=== PATIENT | male | born 1955 | race Caucasian/White ===

== ENCOUNTER 2017-03-13 07:40 | Inpatient (IN) | payer MEDICARE, MEDICAID ==
[2017-03-10 10:25] VITALS: BP 131/105
[2017-03-10 11:24] LABS: BLOOD UREA NITROGEN 12 mg/dL (7-18)
[2017-03-10 11:28] LABS: ASPARTATE AMINO TRANSFERASE 19 U/L (15-37)
[~2017-03-13] VITALS: Ht 182.9 cm; Wt 70.4 kg
[~2017-03-13 07:40] MED LIST: AMIT25TA PO; BUPIVACAINE/PF-EPI 0.5% 1:200K ONE; CLON-365 PO; CLON1TAB PO; DICL25TA PO; DOXY100C15 PO; FENT1PAT77 TP; GABA300C10 PO; GABA800T2 PO; HYDR8TAB27 PO; METH500T97 PO; METH750T87 PO; MORP15TA3 PO; NEOSPORIN OINT, 15GM ONE; OXYC-229 PO; OXYC10TA6 PO; OXYC20TA42 PO; TRAM50TA2 PO; TRAZ100T15 PO
[2017-03-13] MEDS ORDERED: LACTATED RINGERS 1,000 ML IV SCH (08:19)
[2017-03-13] MEDS ORDERED: LIDOCAINE 1%, 2ML ONE (08:28)
[2017-03-13] MEDS ORDERED: FENTANYL PF 250 MCG/5ML ONE (08:38)
[2017-03-13] MEDS ORDERED: MIDAZOLAM 1 MG/ML, 2ML ONE (08:38)
[2017-03-13] MEDS ORDERED: ONDANSETRON 2MG/ML, 2ML IV PRN (10:30)
[2017-03-13] MEDS ORDERED: DIPHENHYDRAMINE 25 MG CAPSULE PO PRN (10:30)
[2017-03-13] MEDS ORDERED: ALUMINUM/MAG/SIMETHICONE 30 ML UDC PO PRN (10:30)
[2017-03-13] MEDS ORDERED: SENNA/DOCUSATE TABLET PO PRN (10:30)
[2017-03-13] MEDS ORDERED: MAGNESIUM HYDROXIDE 8%, 30ML UDC PO PRN (10:30)
[2017-03-13] MEDS ORDERED: PROMETHAZINE 25 MG/ML, 1ML IM PRN (10:30)
[2017-03-13] MEDS ORDERED: HYDROmorphone 1 MG/ML, 1ML IV PRN (10:30)
[2017-03-13] MEDS ORDERED: BISACODYL 10 MG SUPP PR PRN (10:30)
[2017-03-13] MEDS ORDERED: PROMETHAZINE 25 MG/ML, 1ML IV PRN (11:00)
[2017-03-13] MEDS ORDERED: OXYcodone 5 MG/5 ML ORAL.SOL UDC PO PRN (11:00)
[2017-03-13] MEDS ORDERED: ONDANSETRON 2MG/ML, 2ML IVPush PRN (11:00)
[2017-03-13] MEDS ORDERED: MEPERIDINE/PF 25MG/0.5ML IVPush PRN (11:00)
[2017-03-13] MEDS ORDERED: ACETAMINOPHEN 325 MG TABLET PO PRN (11:00)
[2017-03-13] MEDS ORDERED: LABETALOL 5MG/ML, 20ML IV PRN (11:00)
[2017-03-13] MEDS ORDERED: HYDROmorphone 2 MG/ML, 1ML ONE ×2 (11:25→11:46)
[2017-03-13] MEDS ORDERED: ACETAMINOPHEN 325 MG TABLET ONE (11:46)
[2017-03-13] MEDS ORDERED: ACETAMINOPHEN 650 MG/20.3 ML UDC ONE (11:46)
[2017-03-13] MEDS ORDERED: OXYcodone 5 MG/5 ML ORAL.SOL UDC ONE (11:46)
[2017-03-13] MEDS ORDERED: FENTANYL PF 100 MCG/2ML ONE (11:46)
[2017-03-13] MEDS: HYDROmorphone 1 MG/ML, 1ML IV PRN ×4 (11:53→12:25)
[2017-03-13] MEDS: FENTANYL PF 100 MCG/2ML IV PRN ×2 (12:04→12:13)
[2017-03-13 13:00] VITALS: BP 136/90
[2017-03-13] MEDS ORDERED: CEFAZOLIN 1,000 MG ONE (15:33)
[2017-03-13] MEDS ORDERED: ONDANSETRON 2MG/ML, 2ML ONE (15:33)
[2017-03-13] MEDS ORDERED: ROCURONIUM 10 MG/ML ONE (15:33)
[2017-03-13] MEDS ORDERED: PROPOFOL 10 MG/ML, 20ML ONE (15:33)
[2017-03-13] MEDS ORDERED: DEXAMETHASONE 4 MG/ML, 1ML ONE (15:33)
[2017-03-13] MEDS ORDERED: SUCCINYLCHOLINE 20 MG/ML, 10ML ONE (15:33)
[2017-03-13] MEDS: HYDROmorphone 4MG TABLET PO SCH ×3 (15:50→21:33)
[2017-03-13] MEDS: D5%-0.45% NACL 1,000 ML IV SCH ×2 (15:50→20:11)
[2017-03-13] MEDS: AMITRIPTYLINE 25 MG TABLET PO SCH ×2 (15:50→21:33)
[2017-03-13] MEDS: GABAPENTIN 400 MG CAPSULE PO SCH ×2 (15:50→21:33)
[2017-03-13 17:00] VITALS: BP 141/74
[2017-03-13] MEDS: CEFAZOLIN PMX 1GM/50ML 50 ML IVPB SCH (17:39)
[2017-03-13 19:21] VITALS: BP 136/76
[2017-03-13] MEDS ORDERED: TRAZODONE 100MG TABLET PO SCH (21:00)
[2017-03-14 00:20] VITALS: BP 119/76
[2017-03-14] MEDS: CEFAZOLIN PMX 1GM/50ML 50 ML IVPB SCH ×2 (02:32→10:13)
[2017-03-14 03:56] VITALS: BP 108/72
[2017-03-14] MEDS: HYDROmorphone 4MG TABLET PO SCH ×3 (05:34→13:02)
[2017-03-14] MEDS: GABAPENTIN 400 MG CAPSULE PO SCH (08:50)
[2017-03-14] MEDS: AMITRIPTYLINE 25 MG TABLET PO SCH (08:50)
[2017-03-14 09:00] VITALS: BP 92/60
[2017-03-14] MEDS ORDERED: METHOCARBAMOL 500 MG TABLET PO SCH (09:00)
[2017-03-14] MEDS ORDERED: HYDROmorphone 2MG TABLET ONE (13:00)
[2017-03-14 13:02] VITALS: BP 127/72
== END 2017-03-14 13:10 | disposition home or self-care (01) | DRG 460 ==
LOC: ORIP 07:40 → 4NOR 13:02
PROVIDERS: ADMIT Orthopaedic Surgery Orthopaedic Surgery of the Spine; ATTEND Orthopaedic Surgery Orthopaedic Surgery of the Spine
PROC: 0SG80ZZ (ICD-10-PCS; principal; 2017-03-13 10:00)
DX: M13.88 Other specified arthritis, other site (principal); G89.29 Other chronic pain; M54.9 Dorsalgia, unspecified
CPT/HCPCS: 36415; 71020; 72202; 76000; 80053; 81003; 85025; 93005; J0690; J1100; J1170; J2250; J2405; J2704; J3010; C1762; C1776; J0330; J7120

== ENCOUNTER → 2017-04-11 | Outpatient (CLI) | payer MEDICARE, MEDICAID ==
[~2017-04-11] MED LIST changes: -BUPIVACAINE/PF-EPI 0.5% 1:200K ONE; -NEOSPORIN OINT, 15GM ONE
== END | disposition home or self-care (01) ==
LOC: STAR 10:09
PROVIDERS: ATTEND Orthopaedic Surgery Orthopaedic Surgery of the Spine
DX: Z01.818 Encounter for other preprocedural examination (principal); M46.1 Sacroiliitis, not elsewhere classified
CPT/HCPCS: 93005

== ENCOUNTER 2017-04-17 05:52 | Inpatient (IN) | payer MEDICARE, MEDICAID ==
[2017-04-11 10:57] VITALS: BP 153/96
[~2017-04-17] VITALS: Ht 180.3 cm; Wt 81.6 kg
[2017-04-17] MEDS ORDERED: LACTATED RINGERS 1,000 ML IV SCH (06:28)
[2017-04-17] MEDS ORDERED: LIDOCAINE 1%, 2ML SQ PRN (06:30)
[2017-04-17] MEDS ORDERED: BACITRACIN OINT 500U/GM, 15 GM ONE (06:54)
[2017-04-17] MEDS ORDERED: BUPIVACAINE/PF-EPI 0.5% 1:200K ONE (06:55)
[2017-04-17] MEDS ORDERED: MIDAZOLAM 1 MG/ML, 2ML ONE ×2 (07:08)
[2017-04-17] MEDS ORDERED: FENTANYL PF 250 MCG/5ML ONE ×2 (07:08)
[2017-04-17] MEDS ORDERED: PROMETHAZINE 25 MG/ML, 1ML IV PRN (08:00)
[2017-04-17] MEDS ORDERED: hydrALAzine 20 MG/ML, 1ML IV PRN (08:00)
[2017-04-17] MEDS ORDERED: SENNA/DOCUSATE TABLET PO PRN (08:00)
[2017-04-17] MEDS ORDERED: LABETALOL 5MG/ML, 20ML IV PRN (08:00)
[2017-04-17] MEDS ORDERED: PROMETHAZINE 25 MG/ML, 1ML IM PRN (08:00)
[2017-04-17] MEDS ORDERED: DIPHENHYDRAMINE 25 MG CAPSULE PO PRN (08:00)
[2017-04-17] MEDS ORDERED: ALUMINUM/MAG/SIMETHICONE 30 ML UDC PO PRN (08:00)
[2017-04-17] MEDS ORDERED: HYDROmorphone 1 MG/ML, 1ML IV PRN (08:00)
[2017-04-17] MEDS ORDERED: BISACODYL 10 MG SUPP PR PRN (08:00)
[2017-04-17] MEDS ORDERED: MAGNESIUM HYDROXIDE 8%, 30ML UDC PO PRN (08:00)
[2017-04-17] MEDS ORDERED: MIDAZOLAM 1 MG/ML, 2ML IV PRN (08:00)
[2017-04-17] MEDS ORDERED: OXYcodone 5 MG/5 ML ORAL.SOL UDC PO PRN (08:00)
[2017-04-17] MEDS ORDERED: ONDANSETRON 2MG/ML, 2ML IVPush PRN ×2 (08:00)
[2017-04-17] MEDS ORDERED: FENTANYL PF 100 MCG/2ML IV PRN (08:00)
[2017-04-17] MEDS ORDERED: MEPERIDINE/PF 25MG/0.5ML IVPush PRN (08:00)
[2017-04-17] MEDS ORDERED: ACETAMINOPHEN 325 MG TABLET PO PRN (08:00)
[2017-04-17] MEDS ORDERED: OXYcodone 5 MG/5 ML ORAL.SOL UDC ONE (09:08)
[2017-04-17] MEDS ORDERED: HYDROmorphone 1 MG/ML, 1ML ONE (09:08)
[2017-04-17] MEDS ORDERED: ACETAMINOPHEN 650 MG/20.3 ML UDC ONE (09:08)
[2017-04-17] MEDS ORDERED: HYDROmorphone 4MG TABLET PO PRN (10:00)
[2017-04-17 11:50] VITALS: BP 161/95
[2017-04-17] MEDS: HYDROmorphone 1 MG/ML, 1ML IVPush PRN ×5 (12:07→23:05)
[2017-04-17] MEDS: METHOCARBAMOL 500 MG TABLET PO SCH (12:10)
[2017-04-17] MEDS: D5%-0.45% NACL 1,000 ML IV SCH ×2 (12:10→23:06)
[2017-04-17] MEDS: GABAPENTIN 400 MG CAPSULE PO SCH ×3 (12:11→23:04)
[2017-04-17] MEDS: DOCUSATE 100 MG CAPSULE PO SCH ×2 (12:11→20:45)
[2017-04-17] MEDS: AMITRIPTYLINE 25 MG TABLET PO SCH ×3 (12:11→20:45)
[2017-04-17 13:38] VITALS: BP 128/80
[2017-04-17] MEDS: HYDROmorphone 2MG TABLET PO PRN ×3 (13:47→23:46)
[2017-04-17] MEDS ORDERED: LORazepam 2 MG/ML, 1ML IVPush ONE (15:30)
[2017-04-17] MEDS ORDERED: METOCLOPRAMIDE 5 MG/ML, 2ML ONE (16:03)
[2017-04-17] MEDS ORDERED: CEFAZOLIN 1,000 MG ONE (16:03)
[2017-04-17] MEDS ORDERED: PROPOFOL 10 MG/ML, 20ML ONE (16:03)
[2017-04-17] MEDS ORDERED: KETOROLAC 30 MG/1 ML ONE (16:03)
[2017-04-17] MEDS ORDERED: ROCURONIUM 10 MG/ML ONE (16:03)
[2017-04-17] MEDS ORDERED: PHENYLEPHRINE 10 MG/ML ONE (16:03)
[2017-04-17] MEDS ORDERED: DEXAMETHASONE 4 MG/ML, 1ML ONE (16:03)
[2017-04-17] MEDS ORDERED: ONDANSETRON 2MG/ML, 2ML ONE (16:03)
[2017-04-17] MEDS: CEFAZOLIN PMX 1GM/50ML 50 ML IVPB SCH ×2 (16:07→23:12)
[2017-04-17 19:08] VITALS: BP 107/79
[2017-04-17] MEDS ORDERED: TRAZODONE 100MG TABLET PO SCH (21:00)
[2017-04-17 23:27] VITALS: BP 117/80
[2017-04-18] MEDS: HYDROmorphone 1 MG/ML, 1ML IVPush PRN ×4 (01:03→08:37)
[2017-04-18 03:50] VITALS: BP 110/69
[2017-04-18] MEDS: HYDROmorphone 2MG TABLET PO PRN ×2 (03:58→11:55)
[2017-04-18 07:08] VITALS: BP 107/85
[2017-04-18] MEDS: D5%-0.45% NACL 1,000 ML IV SCH (08:00)
[2017-04-18] MEDS: METHOCARBAMOL 500 MG TABLET PO SCH (09:00)
[2017-04-18] MEDS: DOCUSATE 100 MG CAPSULE PO SCH (09:00)
[2017-04-18] MEDS: AMITRIPTYLINE 25 MG TABLET PO SCH (09:00)
[2017-04-18] MEDS: GABAPENTIN 400 MG CAPSULE PO SCH (09:00)
== END 2017-04-18 13:55 | disposition home or self-care (01) | DRG 460 ==
LOC: ORIP 05:52 → 4NOR 10:40 → DCLOUNGE 04-18 13:32
PROVIDERS: ADMIT Orthopaedic Surgery Orthopaedic Surgery of the Spine; ATTEND Orthopaedic Surgery Orthopaedic Surgery of the Spine
PROC: 0SG70ZZ (ICD-10-PCS; principal; 2017-04-17 07:30)
DX: M46.1 Sacroiliitis, not elsewhere classified (principal)
CPT/HCPCS: 72202; 76001; J0690; J1100; J1170; J1885; J2250; J2405; J2704; J3010; C1762; C1776; J2060; J2370; J2765; J7120

== ENCOUNTER 2017-06-05 05:21 | Observation (INO) | payer MEDICARE, MEDICAID ==
[~2017-06-05] VITALS: Ht 180.3 cm; Wt 72.0 kg
[~2017-06-05 05:21] MED LIST changes: -OXYC-229 PO; +OXYC-307 PO; +PROP80TA PO; +TIZA4CAP PO
[2017-06-05] MEDS ORDERED: LACTATED RINGERS 1,000 ML IV SCH (06:08)
[2017-06-05 06:21] VITALS: BP 134/85
[2017-06-05] MEDS ORDERED: BUPIVACAINE/PF 0.5% ONE (06:52)
[2017-06-05] MEDS ORDERED: EPINEPHRINE 1 MG/ML, 1ML ONE (06:53)
[2017-06-05] MEDS ORDERED: BACITRACIN OINT 500U/GM, 15 GM ONE (06:53)
[2017-06-05] MEDS ORDERED: THROMBIN 5,000 UNIT VIAL TP ONE (06:53)
[2017-06-05] MEDS ORDERED: MIDAZOLAM 1 MG/ML, 2ML ONE (07:14)
[2017-06-05] MEDS ORDERED: FENTANYL PF 100 MCG/2ML ONE ×3 (07:14→09:32)
[2017-06-05] MEDS ORDERED: PROPOFOL 10 MG/ML, 20ML ONE (07:46)
[2017-06-05] MEDS ORDERED: DEXAMETHASONE 4 MG/ML, 1ML ONE (07:46)
[2017-06-05] MEDS ORDERED: PHENYLEPHRINE 10 MG/ML ONE (07:46)
[2017-06-05] MEDS ORDERED: ONDANSETRON 2MG/ML, 2ML ONE (07:46)
[2017-06-05] MEDS ORDERED: ROCURONIUM 10 MG/ML ONE (07:46)
[2017-06-05] MEDS ORDERED: CEFAZOLIN 1,000 MG ONE (07:46)
[2017-06-05] MEDS ORDERED: EPHEDRINE 50 MG/ML, 1ML ONE (07:46)
[2017-06-05] MEDS ORDERED: OXYcodone 5 MG/5 ML ORAL.SOL UDC PO PRN (08:30)
[2017-06-05] MEDS ORDERED: hydrALAzine 20 MG/ML, 1ML IV PRN (08:30)
[2017-06-05] MEDS ORDERED: ONDANSETRON 2MG/ML, 2ML IVPush PRN ×2 (08:30)
[2017-06-05] MEDS ORDERED: MEPERIDINE/PF 25MG/0.5ML IVPush PRN (08:30)
[2017-06-05] MEDS ORDERED: ACETAMINOPHEN 325 MG TABLET PO PRN (08:30)
[2017-06-05] MEDS ORDERED: LABETALOL 5MG/ML, 20ML IV PRN (08:30)
[2017-06-05] MEDS ORDERED: SENNA/DOCUSATE TABLET PO PRN (08:30)
[2017-06-05] MEDS ORDERED: HYDROmorphone 2MG TABLET PO PRN (08:30)
[2017-06-05] MEDS ORDERED: PROMETHAZINE 25 MG/ML, 1ML IV PRN (08:30)
[2017-06-05] MEDS ORDERED: BISACODYL 10 MG SUPP PR PRN (08:30)
[2017-06-05] MEDS ORDERED: MAGNESIUM HYDROXIDE 8%, 30ML UDC PO PRN (08:30)
[2017-06-05] MEDS ORDERED: OXYcodone/APAP 5/325MG TABLET PO PRN (08:30)
[2017-06-05] MEDS ORDERED: MIDAZOLAM 1 MG/ML, 2ML IV PRN (08:30)
[2017-06-05] MEDS ORDERED: PHARMACY MAY ADJ FOR RENAL FX MC PRN (08:30)
[2017-06-05] MEDS ORDERED: PROMETHAZINE 25 MG/ML, 1ML IM PRN (08:30)
[2017-06-05] MEDS ORDERED: DIPHENHYDRAMINE 50 MG/ML, 1ML IVPush PRN (08:30)
[2017-06-05] MEDS ORDERED: D5%-0.9% NACL+KCL 20MEQ 1,000 ML IV SCH (08:30)
[2017-06-05] MEDS ORDERED: METHOCARBAMOL 750 MG TABLET PO PRN (08:30)
[2017-06-05] MEDS ORDERED: KETAMINE 10 MG/ML, 20ML ONE (08:41)
[2017-06-05] MEDS ORDERED: GABAPENTIN 400 MG CAPSULE PO SCH (09:00)
[2017-06-05] MEDS ORDERED: AMITRIPTYLINE 25 MG TABLET PO SCH (09:00)
[2017-06-05] MEDS ORDERED: TIZANIDINE 4MG TABLET PO SCH (09:00)
[2017-06-05] MEDS ORDERED: ACETAMINOPHEN 650 MG/20.3 ML UDC ONE (09:32)
[2017-06-05] MEDS ORDERED: OXYcodone 5 MG/5 ML ORAL.SOL UDC ONE (09:32)
[2017-06-05] MEDS ORDERED: HYDROmorphone 2 MG/ML, 1ML ONE (09:33)
[2017-06-05] MEDS: FENTANYL PF 100 MCG/2ML IV PRN ×2 (09:35→09:42)
[2017-06-05] MEDS ORDERED: KETOROLAC 30 MG/1 ML ONE (09:43)
[2017-06-05] MEDS: HYDROmorphone 1 MG/ML, 1ML IV PRN ×4 (09:52→10:20)
[2017-06-05] MEDS ORDERED: METHOCARBAMOL 750 MG TABLET ONE (09:54)
[2017-06-05] MEDS ORDERED: HYDROmorphone 4MG TABLET PO SCH (10:00)
[2017-06-05] MEDS ORDERED: KETOROLAC 30 MG/1 ML IVPush ONE (10:00)
[2017-06-05] MEDS ORDERED: PROPRANOLOl 80 MG CAP.SA.24H PO SCH (21:00)
[2017-06-05] MEDS ORDERED: TRAZODONE 100MG TABLET PO SCH (21:00)
== END 2017-06-05 13:25 | disposition home or self-care (01) ==
LOC: OUT 05:21 → ORIP 08:05
PROVIDERS: ADMIT Orthopaedic Surgery Orthopaedic Surgery of the Spine; ATTEND Orthopaedic Surgery Orthopaedic Surgery of the Spine
DX: M48.07 Spinal stenosis, lumbosacral region (principal); M48.06 Spinal stenosis, lumbar region; G89.4 Chronic pain syndrome
CPT/HCPCS: 63056; 72100; C1769; G0378; J0171; J0690; J1100; J1170; J1885; J2250; J2370; J2405; J2704; J3010; J3490; J7120

== ENCOUNTER 2018-03-16 13:37 | Emergency (ER) | payer MEDICARE, MEDICAID ==
[~2018-03-16] VITALS: Ht 182.9 cm; Wt 82.0 kg
[~2018-03-16 13:37] MED LIST changes: +CEPH-368 PO; +DIAZ5TAB4 PO; +HYDR4TAB PO; +METH4TAB2 PO
[2018-03-16] MEDS ORDERED: HYDROcodone/APAP 5/325 TABLET ONE (14:02)
[2018-03-16] MEDS ORDERED: HYDROcodone/APAP 5/325 TABLET PO ONE (14:30)
[2018-03-16] MEDS ORDERED: CYCLOBENZAPRINE 10 MG TABLET PO ONE (16:00)
[2018-03-16 16:06] VITALS: BP 106/78
== END 2018-03-16 16:10 | disposition home or self-care (01) ==
LOC: ED 15:30
DX: S39.012A Strain of muscle, fascia and tendon of lower back, initial encounter (principal); S29.012A Strain of muscle and tendon of back wall of thorax, initial encounter; M51.35 Other intervertebral disc degeneration, thoracolumbar region; W22.03XA Walked into furniture, initial encounter; Y93.89 Activity, other specified; Y92.89 Other specified places as the place of occurrence of the external cause; Y99.8 Other external cause status
CPT/HCPCS: 72072; 72110; 99284

== ENCOUNTER → 2020-03-29 | Outpatient (CLI) | payer MEDICARE, MEDICAID ==
[~2020-03-29] MED LIST changes: +AMIT10TA PO; +ATOR-2 PO; +CARI350T PO; -CLON-365 PO; +CLON0.5T PO; +CLON1TAB11 PO; +DILT120C80 PO; +GABA-827 PO; -GABA800T2 PO; +GABA800T5 PO; +METO50TA82 PO; +MORP-29 PO; -MORP15TA3 PO; +TRAZ-175 PO; -TRAZ100T15 PO
[2020-03-29 10:19] LABS: ALBUMIN 3.5 g/dL (3.4-5.0); ANION GAP 3 mmol/L (5-15); CALCIUM 8.4 mg/dL (8.5-10.1); CHLORIDE 109 mmol/L (98-107); INTERNATIONAL NORMALIZED RATIO 0.93 (0.93-1.1); PROTHROMBIN TIME 9.9 Seconds (9.6-11.5)
[2020-03-29 10:23] LABS: ALANINE AMINOTRANSFERASE 22 U/L (12-78); ALKALINE PHOSPHATASE 281 U/L (45-117); BILIRUBIN,TOTAL 0.4 mg/dL (0.2-1.0); CREATININE 1.18 mg/dL (0.7-1.3); TOTAL PROTEIN 7.8 g/dL (6.4-8.2)
[2020-03-29 10:39] LABS: BASOPHILS # (AUTO) 0.02 x10^3/uL (0-0.1); BASOPHILS % (AUTO) 0 % (0-1); EOSINOPHILS # (AUTO) 0.11 x10^3/uL (0-0.4); EOSINOPHILS % (AUTO) 2 % (1-7); LYMPHOCYTES # (AUTO) 1.64 x10^3/uL (1-3.4); LYMPHOCYTES % (AUTO) 26 % (22-44); MD NO; MEAN CORPUSCULAR HEMOGLOBIN 30.2 pg (27.5-34.5); MEAN CORPUSCULAR VOLUME 91.3 fL (81-97); MEAN PLATELET VOLUME 7.9 fL (7.4-10.4); MONOCYTES # (AUTO) 0.52 x10^3/uL (0.2-0.8); MONOCYTES % (AUTO) 8 % (2-9); NEUTROPHILS # (AUTO) 3.96 x10^3/uL (1.8-6.8); NEUTROPHILS % (AUTO) 63 % (42-75); PLATELET COUNT 302 x10^3/uL (130-400); RED BLOOD COUNT 4.43 x10^6/uL (4.38-5.82); RED CELL DISTRIBUTION WIDTH 15.1 % (9.4-14.8)
[2020-03-29 11:22] LABS: HCT (SEDRATE) 40.4 % (39.2-51.8)
== END | disposition home or self-care (01) ==
LOC: STAR 08:56
PROVIDERS: ATTEND Orthopaedic Surgery Orthopaedic Surgery of the Spine
DX: Z01.818 Encounter for other preprocedural examination (principal); T85.898A Other specified complication of other internal prosthetic devices, implants and grafts, initial encounter; M40.209 Unspecified kyphosis, site unspecified; I45.10 Unspecified right bundle-branch block
CPT/HCPCS: 36415; 80053; 83036; 85025; 85610; 85651; 85730; 93005

== ENCOUNTER → 2020-05-22 | Outpatient (CLI) | payer MEDICARE, MEDICAID ==
[~2020-05-22] MED LIST changes: +Clindamycin PO; +OXYC5CAP2 PO
[2020-05-22 09:45] LABS: BASOPHILS # (AUTO) 0.06 x10^3/uL (0-0.1); BASOPHILS % (AUTO) 1 % (0-1); EOSINOPHILS # (AUTO) 0.14 x10^3/uL (0-0.4); EOSINOPHILS % (AUTO) 2 % (1-7); HCT (SEDRATE) 35.4 % (39.2-51.8); LYMPHOCYTES # (AUTO) 1.57 x10^3/uL (1-3.4); LYMPHOCYTES % (AUTO) 20 % (22-44); MD NO; MEAN CORPUSCULAR HEMOGLOBIN 26.8 pg (27.5-34.5); MEAN CORPUSCULAR VOLUME 86.7 fL (81-97); MEAN PLATELET VOLUME 7.5 fL (7.4-10.4); MONOCYTES # (AUTO) 0.38 x10^3/uL (0.2-0.8); MONOCYTES % (AUTO) 5 % (2-9); NEUTROPHILS # (AUTO) 5.72 x10^3/uL (1.8-6.8); NEUTROPHILS % (AUTO) 73 % (42-75); PLATELET COUNT 512 x10^3/uL (130-400); RED BLOOD COUNT 4.06 x10^6/uL (4.38-5.82); RED CELL DISTRIBUTION WIDTH 16.5 % (9.4-14.8)
[2020-05-22 09:54] LABS: INTERNATIONAL NORMALIZED RATIO 0.98 (0.93-1.1); PROTHROMBIN TIME 10.1 Seconds (9.6-11.5)
[2020-05-22 09:56] LABS: ALBUMIN 3.3 g/dL (3.4-5.0); CALCIUM 8.9 mg/dL (8.5-10.1)
[2020-05-22 09:59] LABS: ALANINE AMINOTRANSFERASE 20 U/L (12-78); ALKALINE PHOSPHATASE 270 U/L (45-117); BILIRUBIN,TOTAL 0.4 mg/dL (0.2-1.0); CREATININE 1.24 mg/dL (0.7-1.3); TOTAL PROTEIN 8.3 g/dL (6.4-8.2)
[2020-05-22 10:02] LABS: ANION GAP 3 mmol/L (5-15); CHLORIDE 109 mmol/L (98-107)
== END | disposition home or self-care (01) ==
LOC: STAR 08:21
PROVIDERS: ATTEND Orthopaedic Surgery Orthopaedic Surgery of the Spine
DX: Z01.818 Encounter for other preprocedural examination (principal); Z20.828 Contact with and (suspected) exposure to other viral communicable diseases; T14.8XXA Other injury of unspecified body region, initial encounter; T81.30XA Disruption of wound, unspecified, initial encounter; X58.XXXA Exposure to other specified factors, initial encounter; Y93.89 Activity, other specified; Y92.89 Other specified places as the place of occurrence of the external cause; Y99.8 Other external cause status
CPT/HCPCS: 36415; 71046; 80053; 83036; 85025; 85610; 85651; 85730; 87635

== ENCOUNTER 2020-05-26 10:19 | Day surgery (SDC) | payer MEDICARE, MEDICAID ==
[~2020-05-26] VITALS: Ht 182.9 cm; Wt 79.5 kg
[2020-05-26] MEDS ORDERED: VANCOMYCIN PMX 1GM/200ML 200 ML IV ONE (10:30)
[2020-05-26] MEDS ORDERED: LACTATED RINGERS 1,000 ML IV SCH (10:40)
[2020-05-26 10:41] VITALS: BP 126/72
[2020-05-26] MEDS ORDERED: CHLORHEXIDINE 15 ML UDC MM ONE (11:00)
[2020-05-26] MEDS ORDERED: MIDAZOLAM 1 MG/ML, 2ML ONE (11:41)
[2020-05-26] MEDS ORDERED: FENTANYL PF 250 MCG/5ML ONE (11:41)
[2020-05-26] MEDS ORDERED: PROPOFOL 10 MG/ML, 20ML ONE (11:42)
[2020-05-26] MEDS ORDERED: ROCURONIUM 10MG/ML,5ML ONE (11:43)
[2020-05-26] MEDS ORDERED: LABETALOL 5MG/ML, 20ML IV PRN (12:00)
[2020-05-26] MEDS ORDERED: HYDROmorphone 1 MG/ML, 1ML INJ IVPush PRN (12:00)
[2020-05-26] MEDS ORDERED: FENTANYL PF 100 MCG/2ML IV PRN (12:00)
[2020-05-26] MEDS ORDERED: ACETAMINOPHEN 325 MG TABLET PO PRN (12:00)
[2020-05-26] MEDS ORDERED: OXYcodone 5 MG/5 ML ORAL.SOL UDC PO PRN (12:00)
[2020-05-26] MEDS ORDERED: hydrALAzine 20 MG/ML, 1ML IV PRN (12:00)
[2020-05-26] MEDS ORDERED: PROMETHAZINE 25 MG/ML, 1ML IVPush PRN (12:00)
[2020-05-26] MEDS ORDERED: ONDANSETRON 2MG/ML, 2ML IVPush PRN (12:00)
[2020-05-26] MEDS ORDERED: MEPERIDINE/PF 25MG/0.5ML IVPush PRN (12:00)
[2020-05-26] MEDS ORDERED: DIAZEPAM 5 MG/ML, 2ML IVPush PRN (12:00)
[2020-05-26] MEDS ORDERED: OXYcodone IR 5MG TABLET PO ONE (12:30)
[2020-05-26] MEDS ORDERED: ACETAMINOPHEN 500 MG TABLET PO ONE (12:30)
[2020-05-26] MEDS ORDERED: GABAPENTIN 300 MG CAPSULE PO ONE (12:30)
[2020-05-26] MEDS ORDERED: ACETAMINOPHEN 500 MG TABLET ONE (12:33)
[2020-05-26] MEDS ORDERED: BACITRACIN 50,000 UNIT ONE (12:38)
[2020-05-26] MEDS ORDERED: BUPIVACAINE/PF-EPI 0.5% 1:200K ONE (12:38)
[2020-05-26] MEDS ORDERED: LIDOCAINE-MPF 1%, 2ML ONE (13:02)
[2020-05-26] MEDS ORDERED: CEFAZOLIN 1,000 MG ONE (13:02)
[2020-05-26] MEDS ORDERED: GLYCOPYRROLATE 0.2MG/1ML, 5ML ONE (13:02)
[2020-05-26] MEDS ORDERED: ONDANSETRON 2MG/ML, 2ML ONE (13:02)
[2020-05-26] MEDS ORDERED: VANCOMYCIN 1,000 MG ONE (13:48)
[2020-05-26] MEDS ORDERED: OXYcodone 5 MG/5 ML ORAL.SOL UDC ONE (14:30)
[2020-05-26] MEDS ORDERED: FENTANYL PF 100 MCG/2ML ONE (14:30)
[2020-05-26] MEDS ORDERED: CARISOPRODOL 350 MG TABLET PO PRN (15:00)
== END 2020-05-26 16:00 | disposition home or self-care (01) ==
LOC: OUT 10:19
PROVIDERS: ATTEND Orthopaedic Surgery Orthopaedic Surgery of the Spine
DX: T81.32XA Disruption of internal operation (surgical) wound, not elsewhere classified, initial encounter (principal); I48.91 Unspecified atrial fibrillation; Z79.899 Other long term (current) drug therapy; Z88.8 Allergy status to other drugs, medicaments and biological substances; Z98.890 Other specified postprocedural states; Y83.8 Other surgical procedures as the cause of abnormal reaction of the patient, or of later complication, without mention of misadventure at the time of the procedure
CPT/HCPCS: 13160; 87015; 87070; 87075; 87102; 87116; 87205; 87206; J0690; J2250; J2405; J2704; J3010; J3370; J7120; Q4118